=== PATIENT | female | born 1975 | race Caucasian/White ===

== ENCOUNTER 2024-10-10 23:33 | Inpatient (IN) | payer OTHER, SELFPAY ==
--- NOTE | ~2024-10-10 | CT_ITS ---
CLINICAL HISTORY: b l lower abd pain ?appy diverticulitis CT abdomen and pelvis with contrast Comparison: None Findings: No consolidation or effusion. The liver is enlarged. The liver appears normal in contour. The gallbladder and solid organs are otherwise within normal limits. No hydronephrosis or hydroureter. No bowel obstruction, pneumoperitoneum, or pneumatosis. There are postsurgical changes of the stomach suggesting prior gastric sleeve procedure. Pelvic contents unremarkable. No bladder wall thickening. There are edematous changes and minimal free fluid at the right lower abdominal quadrant with dilation of the appendix up to 9 mm in diameter. No periappendiceal abscess identified. No acute fracture visualized. IMPRESSION: 1. Acute appendicitis with dilation of the appendix up to 9 mm in diameter at the right lower abdominal quadrant. There is moderate periappendiceal edema and minimal free fluid. No periappendiceal abscess. 2. Mild hepatomegaly. This document has been electronically signed by: Matti Jain MD on 10/11/2024 02:35:39
[2024-10-10 23:34] VITALS: BP 139/83; PULSE 98; RESP 18; TEMP 36.3; O2SAT 100; BMI 27.2
[2024-10-10 23:59] LABS: MANUAL DIFF FLAG NO
[2024-10-11] VITALS (12 sets, daily range): BP systolic 108–136; BP diastolic 54–78; PULSE 66–97; RESP 16–18; TEMP 36.1–37.1; O2SAT 97–100; BMI 27.3
[2024-10-11 00:02] LABS: Appearance Urine Turbid; Basophils Percent Auto 0.2 % (0-2); Color Urine Yellow; Eosinophils Percent Auto 0.2 % (0-4); Glucose Urine UA Negative (Negative); Hematocrit 41.3 % (37.0-47.0); Hemoglobin 13.8 g/dl (12.0-16.0); Imm Gran Abs Auto 0.06 X10*3/uL (0.00-0.03); Imm Gran Pct Auto 0.5 % (0.0-0.4); Leukocyte Esterase Urine Negative (Negative); Lymphocytes Absolute Auto 1.5 X10*3/uL (1.2-4.9); Mean Corpuscular HGB Conc 33.4 g/dl (31.0-35.0); Mean Corpuscular Hemoglobin 28.4 pg (27.0-33.0); Mean Platelet Volume 9.2 fL (9.4-12.3); Monocytes Absolute Auto 0.7 X10*3/uL (0.1-1.2); Monocytes Percent Auto 5.4 % (2-11); Neutrophils Absolute Auto 10.9 x10*3/uL (2.0-8.3); Neutrophils Percent Auto 82.7 % (45-73); Nitrite Urine Negative (Negative); PH 8.5 (5.0-9.0); Platelet Count 213 X10*3/uL (160-400); Red Blood Count 4.86 X10*6/uL (4.20-5.50); Red Cell Distribution Width 12.3 % (11.0-16.0); Urine Blood Negative (Negative); Urine Ketones Negative (Negative); Urine Protein Negative (Neg-Trace); White Blood Count 13.1 X10*3/uL (4.8-10.8)
[2024-10-11 00:14] LABS: Alanine Aminotransferase 19 U/L (0-31); Alkaline Phosphatase 102 U/L (39-117); Anion Gap 13 (12-20); Aspartate Amino Transferase 18 U/L (5-31); Bilirubin Total 0.7 mg/dL (0.0-1.0); Blood Urea Nitrogen 8 mg/dL (9-16); Calcium 9.8 mg/dL (8.4-10.2); Carbon Dioxide 24 mmol/L (22-29); Chloride 106 mmol/L (96-108); Creatinine Clr Calc Pharmacy 80.2; Estimated Glomerular Filt Rate > 60; Glucose Random 100 mg/dL (60-115); Potassium 3.4 mmol/L (3.3-5.1); Sodium 140 mmol/L (135-145); Total Protein 7.7 g/dL (6.5-8.0)
--- NOTE | 2024-10-11 00:31 | ED.ABDPAIN ---
HPI - Abdominal Pain General Chief Complaint: Abdominal Pain Stated Complaint: abd pain Time Seen by Provider: 10/11/24 00:30 Source: patient Mode of arrival: ambulatory Limitations: no limitations History of Present Illness ED Provider: HPI narrative: Patient with no significant past medical history comes here for lower abdominal pain started 10/10/24 8am when she woke up history with nausea no vomiting and has a loose bowel denies any urinary complaints patient's feel diffuse pain in lower abdomen no fever no chills did not have much appetite today in pain got worse after eating food especially on the right side Related Data Allergies Allergy/AdvReac Type Severity Reaction Status Date / Time No Known Allergies Allergy Verified 10/10/24 23:39 Review of Systems Review of Systems Yes all other systems are reviewed and are negative PMFSH Past Medical History Attestation statement: The following information was validated with the patient. Social History Social History Patient Tobacco Use Status: Never used Tobacco Smoked in Last 30 Days: No Use of substances other than those prescribed or required for medical reasons: No Advance Directives: Yes Advance Directives Information Provided: Yes Advance Directives on File: No Nutrition Risks: No Nutritional Risk Patient : No Physical Exam ED Vital Signs: Vital Signs - 24 hr 10/10/24 23:34 10/11/24 03:10 10/11/24 03:11 Temperature 97.4 F 98.8 F Pulse Rate 98 67 Respiratory Rate 18 16 16 Blood Pressure 139/83 124/72 Pulse Oximetry 100 99 Oxygen Delivery Method Room Air Room Air BMI result Body Mass Index 27.2 Appearance: Alert. Oriented X3. No acute distress. Eyes: PERRLA, No Nystagmus ENT: Pharynx normal. Oral Mucosa moist Neck: Normal inspection. Neck supple. CVS: Normal heart rate and rhythm. Pulses normal. Respiratory: No respiratory distress. Equal air entry bilateral, no wheezing/rales/rhonchi Abdomen: Soft and tenderness right lower quadrant with guarding also has mild tenderness in the left lower quadrant without guarding. Normal skin color. Normal skin turgor. Extremities: No lower extremity edema. No calf tenderness Neuro: Oriented X 3. No motor deficit. No sensory deficit.No cerebellar signs , cranial nerves II-XII intact Medical Decision Making Medical Decision Making MDM Narrative: Patient's lower abdominal pain with no prior history of abdominal surgeries or complaints CT scan was done showed 9 mm dilated appendix with no free fluid case discussed Dr. Nam plan to admit will do surgery in a.m. Differential Diagnosis Differential Diagnoses: The differential diagnosis associated with the presentation includes Appendicitis/renal colic/diverticulitis Admission/Observation Consideration of admission/observation: Escalation of care including admission/observation considered Consult Healthcare Provider Management of the patient was discussed with: Esthetic Dermatologist Surgeon Dr. Nam Lab Data MDM Lab Attestation statement: I reviewed the patient's lab results. 10/10/24 23:55 10/10/24 23:55 Labs: Lab Results 10/10/24 10/11/24 Range/Units 23:55 03:05 WBC 13.1 H (4.8-10.8) X10*3/uL RBC 4.86 (4.20-5.50) X10*6/uL Hgb 13.8 (12.0-16.0) g/dl Hct 41.3 (37.0-47.0) % MCV 85.0 (80.0-98.0) fL MCH 28.4 (27.0-33.0) pg MCHC 33.4 (31.0-35.0) g/dl RDW 12.3 (11.0-16.0) % Plt Count 213 (160-400) X10*3/uL MPV 9.2 L (9.4-12.3) fL Immature Gran % (Auto) 0.5 H (0.0-0.4) % Neut % (Auto) 82.7 H (45-73) % Lymph % (Auto) 11.0 L (20-40) % [place] % (Auto) 5.4 (2-11) % Eos % (Auto) 0.2 (0-4) % Baso % (Auto) 0.2 (0-2) % Lymph # (Auto) 1.5 (1.2-4.9) X10*3/uL [place] # (Auto) 0.7 (0.1-1.2) X10*3/uL Eos # (Auto) 0.0 (0.0-0.4) X10*3/uL Baso # (Auto) 0.0 (0.0-0.2) X10*3/uL Abs Immat Gran (auto) 0.06 H (0.00-0.03) X10*3/uL Absolute Neuts (auto) 10.9 H (2.0-8.3) x10*3/uL Absolute Nucleated RBC 0.000 (0.0-0.012) X10*3/uL Nucleated RBC % (auto) 0.0 (0.0-0.2) /100WBC Sodium 140 (135-145) mmol/L Potassium 3.4 (3.3-5.1) mmol/L Chloride 106 (96-108) mmol/L Carbon Dioxide 24 (22-29) mmol/L Anion Gap 13 (12-20) BUN 8 L (9-16) mg/dL Creatinine 0.72 (0.5-1.4) mg/dL Estim Creat Clear Calc 80.2 Estimated GFR > 60 Random Glucose 100 (60-115) mg/dL Lactic Acid 0.7 (0.5-2.0) mmol/L Calcium 9.8 (8.4-10.2) mg/dL Total Bilirubin 0.7 (0.0-1.0) mg/dL AST 18 (5-31) U/L ALT 19 (0-31) U/L Alkaline Phosphatase 102 (39-117) U/L Total Protein 7.7 (6.5-8.0) g/dL Albumin 5.0 (3.5-5.0) g/dL Urine Color Yellow Urine Appearance Turbid Urine pH 8.5 (5.0-9.0) Ur Specific [place] 1.020 (1.005-1.025) Urine Protein Negative (Neg-Trace) mg/dL Urine Glucose (UA) Negative (Negative) mg/dL Urine Ketones Negative (Negative) mg/dL Urine Blood Negative (Negative) Urine Nitrite Negative (Negative) Ur Leukocyte Esterase Negative (Negative) Urine Test NEGATIVE (NEGATIVE) Independent Interpretation I performed an independent interpretation of an: CT Scan Radiology Impression Discussion of test interpretation with radiology: I have reviewed the radiologist's reading. Radiologist Impression: [address] [address] [address] Scan Report Signed with Vinay Patient: Becky Maki MR#: [id number] : 1975 Acct:[id number] Age/Sex: 49 / F ADM Date: 10/11/24 Loc: HO.ED Attending Dr: Ordering Physician: Jabari Boucher MD Date of Service: 10/11/24 Procedure(s): CT abdomen pelvis w IV con Accession Number(s): [id number] cc: Hugo Del Rio APRN; Jabari Boucher MD~ Report Number: [id number]: Total DLP = 478.00 mGy-cm ADDENDUMThis document has been electronically signed by: Matti Jain MD on 10/11/2024 02:35:39 ADDENDUM: This report was discussed with MARIAH Rodriguez on Oct 11, 2024 02:38:00 EDT. This document has been electronically signed by: Meredith Guthrie on 10/11/2024 02:38:21 Addendum Dictated By: Matti Jain MD Addendum Signed By: <Electronically signed by Matti Jain MD in OV> 10/11/24238 Addendum Cosigned By: DD/ TD/TT: 10/11/24 CLINICAL HISTORY: b l lower abd pain ?appy diverticulitis CT abdomen and pelvis with contrast Comparison: None Findings: No consolidation or effusion. The liver is enlarged. The liver appears normal in contour. The gallbladder and solid organs are otherwise within normal limits. No hydronephrosis or hydroureter. No bowel obstruction, pneumoperitoneum, or pneumatosis. There are postsurgical changes of the stomach suggesting prior gastric sleeve procedure. Pelvic contents unremarkable. No bladder wall thickening. There are edematous changes and minimal free fluid at the right lower abdominal quadrant with dilation of the appendix up to 9 mm in diameter. No periappendiceal abscess identified. No acute fracture visualized. IMPRESSION: 1. Acute appendicitis with dilation of the appendix up to 9 mm in diameter at the right lower abdominal quadrant. There is moderate periappendiceal edema and minimal free fluid. No periappendiceal abscess. 2. Mild hepatomegaly. This document has been electronically signed by: Matti Jain MD on 10/11/2024 02:35:39 Medications Administered Generic Name Dose Route Start Last Admin Trade Name Freq PRN Reason Stop Dose Admin Lactated Ringer's 1,000 mls @ 100 mls/hr 10/11/24 04:15 10/11/24 05:04 Lr IVCONT 100 mls/hr .Q10H MISSY Administration Discontinued Medications Generic Name Dose Route Start Last Admin Trade Name Javy PRN Reason Stop Dose Admin Sodium Chloride 1,000 mls @ 999 mls/hr 10/11/24 01:01 10/11/24 03:11 Ns IV 10/11/24 02:01 Infused .Q1H1M ONE Infusion Piperacillin Sod/Tazobactam 50 mls @ 100 mls/hr 10/11/24 02:44 10/11/24 03:40 Sod 3.375 gm/ Sodium Chloride IV 10/11/24 03:13 Infused ONCE ONE Infusion Iohexol 85 ml 10/11/24 01:28 10/11/24 01:28 Iohexol 350 Mg/Ml 100 Ml Infus..Btl IV 10/11/24 01:29 85 ml ONCE ONE Administration Ketorolac Tromethamine 30 mg 10/11/24 01:01 10/11/24 01:37 Ketorolac Tromethamine 30 Mg/Ml Vial IVPUSH 10/11/24 01:02 30 mg ONCE ONE Administration Morphine Sulfate 4 mg 10/11/24 02:50 10/11/24 03:10 Morphine Sulfate 4 Mg/Ml Cartridge IVPUSH 10/11/24 02:51 4 mg ONCE ONE Administration Protocol Ondansetron HCl 4 mg 10/11/24 02:50 10/11/24 03:10 Ondansetron Hcl 4 Mg/2 Ml Vial IVPUSH 10/11/24 02:51 4 mg ONCE ONE Administration Discharge Plan Discharge Clinical Impression: Acute appendicitis Patient Disposition: Admitted As Inpatient
--- NOTE | 2024-10-11 00:55 | PC.NURSE ---
pt a&ox4, respirations even and unlabored. pt reports onset of lower abdominal cramping which she states she had been in menopause x2 years. reports intermittent nausea and vomiting as well as episodes of diarrhea. pt denies sob and cp. 20g placed in right ac, fluids administering.
[2024-10-11 01:12] LABS: UPreg QC Valid YES; Urine Pregnancy NEGATIVE (NEGATIVE)
[2024-10-11] MEDS: iohexoL 350 MG/ML 100 ML INFUS..BTL 85 ML IV (01:28)
[2024-10-11] MEDS: Ketorolac Tromethamine 30 MG/ML VIAL IVPUSH (01:37)
[2024-10-11] MEDS: 0.9 % Sodium Chloride 1,000 ML 999 ML IV (01:38)
[2024-10-11] MEDS: ondansetron HCL 4 MG/2 ML VIAL IVPUSH (03:10)
[2024-10-11] MEDS: Piperacillin Sodium/Tazobactam 3.375 GM in 0.9 % Sodium Chloride 50 ML IV ×4 (03:10→20:15)
[2024-10-11] MEDS: Morphine Sulfate 4 MG/ML CARTRIDGE IVPUSH (03:10)
--- NOTE | 2024-10-11 03:12 | PC.NURSE ---
labs obtained at this time, vss. pt medicated per jun for 610 abdominal pain
[2024-10-11 03:29] LABS: Lactic Acid 0.7 mmol/L (0.5-2.0)
[2024-10-11] MEDS: Lactated Ringers 1,000 ML 100 ML IVCONT (05:04)
--- NOTE | 2024-10-11 08:30 | PHA.MEDREC ---
Pharmacy Consult ? Medication Reconciliation Pharmacy has completed the medication reconciliation. Patient confirmed to be on two medications at home. Patient stated she will bring in her phentermine if she feels she needs it, otherwise she is okay with going without. Both medications are for weight control.
--- NOTE | 2024-10-11 08:50 | PM.HPGS ---
History of Present Illness History of Present Illness Date of Service: 10/11/24 Chief complaint: acute appendicitis Narrative: Becky Maki is a 49 year old female here in the ER for a lower abdominal pain. She says that this started around 08:00 yesterday morning. This persisted throughout the day yesterday so she came to the emergency room late last night She says the pain is throughout her lower abdomen but is more in the right than on the left side. She denies any nausea or vomiting. She describes having a little bit of diarrhea the day before. She says she has never had any similar episodes in the past She denies any medical problems. She says she was on medications for hypertension in the past but she says that this was stopped after she had gastric bypass surgery 5 years ago. She also has a history of for C-sections. She smoked a pack a day for almost 20 years. She says she quit smoking several years ago. Review of Systems Constitutional: Constitutional: Denies chills and Denies fever(s) Cardiovascular: Cardiovascular: Denies chest pain, Denies dyspnea and Denies dyspnea on exertion Respiratory: Respiratory: Denies cough, Denies dyspnea and Denies dyspnea on exertion Gastrointestinal: Gastrointestinal: Denies hematochezia and Denies change in bowel habits Genitourinary: Genitourinary: Denies hematuria Musculoskeletal: Musculoskeletal: Denies back pain and Denies limited range of motion Neurologic: Denies focal weakness and Denies convulsions Psychiatric: Psychiatric: Denies depression and Denies mood swings PMFSH Social History Social History Household Members: Significant Other and Children Housing: House Do you presently have visiting nurse or other home services: No Patient Tobacco Use Status: Never used Tobacco Smoked in Last 30 Days: No Use of substances other than those prescribed or required for medical reasons: No Currently Displaying Signs/Symptoms of Drug Intoxication Withdrawal: No Have you been hit, kicked, punched, or otherwise hurt by someone within the past year? If so, by whom?: No Do you feel safe in your current relationship?: Yes Is there a partner from a previous relationship who is making you feel unsafe now?: No Are you made to feel afraid or neglected: No Advance Directives: Yes Advance Directives Information Provided: Yes Advance Directives on File: No Advance Directives Date on File: 10/11/24 Do you have a plan to hurt others: No Plan Recently lost weight without trying: No Eating poorly because of decreased appetite: No Nutrition Risks: No Nutritional Risk Patient : No : No Poor oral hygiene: No Meds Allergies Allergy/AdvReac Type Severity Reaction Status Date / Time No Known Allergies Allergy Verified 10/10/24 23:39 Active Medications: Current Medications Acetaminophen (Acetaminophen 325 Mg Tablet) 650 mg PO Q6H PRN PRN Reason: Pain, Mild 1-3,fever,headache Heparin Sodium (Porcine) (Heparin Sodium,Porcine 5,000 Unit/Ml Vial) 5,000 unit SUBCUT Q8H MISSY Lactated Ringer's (Lr) 1,000 mls @ 100 mls/hr IVCONT .Q10H [facility] Last Admin: 10/11/24 05:04 Dose: 100 mls/hr Piperacillin Sod/Tazobactam (Sod 3.375 gm/ Sodium Chloride) 50 mls @ 100 mls/hr IV Q6H [facility] Last Admin: 10/11/24 08:14 Dose: 100 mls/hr Morphine Sulfate (Morphine Sulfate 4 Mg/Ml Cartridge) 3 mg IVPUSH Q3H PRN; Protocol PRN Reason: Pain, Severe (Pain Scale 7-10) Sodium Chloride (0.9 % Sodium Chloride Flush 3 Ml Syringe) 3 ml IVFLUSH QSHIFT [facility] Last Admin: 10/11/24 08:14 Dose: Not Given Home Medications ?Medication ?Instructions ?Recorded ?Confirmed ?Last Taken ?Type phentermine 30 mg capsule 30 mg PO DAILY 10/11/24 10/11/24 Unknown History topiramate 100 mg tablet 100 mg PO DAILY 10/11/24 10/11/24 Unknown History Physical Exam Vital Signs: Vital Signs: Last Vital Signs Temp 98.4 F 10/11/24 06:09 Pulse 91 10/11/24 06:09 Resp 18 10/11/24 06:09 BP 126/74 10/11/24 06:09 Pulse Ox 100 10/11/24 06:09 O2 Del Method Room Air 10/11/24 06:09 BMI result Body Mass Index 27.2 Const: Other: Looks well General: comfortable and no acute distress Orientation/consciousness: patient oriented x3 Neck: Neck: Yes no lymphadenopathy Resp: Auscultation: clear to auscultation bilaterally Cardio: Rhythm: regular rhythm GI: Other: Tender on deep palpation in the lower abdomen, right more than the left, no peritoneal signs Palpation (GI): Soft to palpation, nontender and no guarding Neuro: General: patient oriented x3 Results Results Labs: Short CBC 10/10/24 Range/Units 23:55 WBC 13.1 H (4.8-10.8) X10*3/uL Hgb 13.8 (12.0-16.0) g/dl Hct 41.3 (37.0-47.0) % Plt Count 213 (160-400) X10*3/uL BMP 10/10/24 23:55 Sodium 140 Potassium 3.4 Chloride 106 Carbon Dioxide 24 BUN 8 L Creatinine 0.72 Calcium 9.8 Liver Function 10/10/24 Range/Units 23:55 Total Bilirubin 0.7 (0.0-1.0) mg/dL AST 18 (5-31) U/L ALT 19 (0-31) U/L Alkaline Phosphatase 102 (39-117) U/L Albumin 5.0 (3.5-5.0) g/dL Urine 10/10/24 Range/Units 23:55 Urine Color Yellow Urine Appearance Turbid Urine pH 8.5 (5.0-9.0) Ur Specific [place] 1.020 (1.005-1.025) Urine Protein Negative (Neg-Trace) mg/dL Urine Glucose (UA) Negative (Negative) mg/dL Urine Test NEGATIVE (NEGATIVE) Abdomen CT scan report/results: report reviewed and image reviewed CT scan - pelvis: report reviewed and image reviewed Additional studies: CT abdomen and pelvis with contrast Comparison: None Findings: No consolidation or effusion. The liver is enlarged. The liver appears normal in contour. The gallbladder and solid organs are otherwise within normal limits. No hydronephrosis or hydroureter. No bowel obstruction, pneumoperitoneum, or pneumatosis. There are postsurgical changes of the stomach suggesting prior gastric sleeve procedure. Pelvic contents unremarkable. No bladder wall thickening. There are edematous changes and minimal free fluid at the right lower abdominal quadrant with dilation of the appendix up to 9 mm in diameter. No periappendiceal abscess identified. No acute fracture visualized. IMPRESSION: 1. Acute appendicitis with dilation of the appendix up to 9 mm in diameter at the right lower abdominal quadrant. There is moderate periappendiceal edema and minimal free fluid. No periappendiceal abscess. 2. Mild hepatomegaly. Assessment and Plan (1) Acute appendicitis: Status: Acute [age] year old female, with lower abdominal pain, right more than the left for about 24 hours. I have reviewed her CAT scan and this does show some inflammatory changes in the right lower quadrant with an appendix that seems to be edematous, dilated and inflamed consistent with the acute appendicitis. I do not see any appendicolith. There were no abscesses I explained to her that we can do laparoscopic appendectomy for acute appendicitis. I explained the technique of laparoscopic appendectomy as well as open appendectomy by a laparotomy. I reviewed the risks including but not limited to bleeding, infections, injury to other organs including the urinary tract in the bowel, staple line leak, ingredients of anesthesia, as well as the benefits and alternatives. I reviewed with the what to expect postoperatively. She understands the option of antibiotic treatment but she prefers to go ahead with the appendectomy. She understands the above and says she wants to proceed. We will put her on the schedule for this morning in the operating room. Her mother was with her during the visit. Quality Stroke Does the patient have a stroke diagnosis?: No VTE Prior VTE?: No VTE Risk Level:: Medical - moderate - high VTE Device Contraindication: N/A - Device Ordered VTE Drug Contraindication: N/A - Med Ordered Procedures Date of Service Date of Service: 10/11/24
--- NOTE | 2024-10-11 09:31 | HO.ANESPROP2 ---
PMFSH Active Problems Active Problems: All Active Problems Acute appendicitis (Acute) Past Medical History Functional capacity: independent ambulation Patient : No Family History Family history of problems with anesthesia: No Surgical History History of Problems with Anesthesia: No Social History Social History Patient Tobacco Use Status: Never used Tobacco Smoked in Last 30 Days: No Use of substances other than those prescribed or required for medical reasons: No Advance Directives: Yes Advance Directives Information Provided: Yes Advance Directives on File: No Nutrition Risks: No Nutritional Risk Patient : No Meds Allergies Allergy/AdvReac Type Severity Reaction Status Date / Time No Known Allergies Allergy Verified 10/10/24 23:39 Active Medications: Current Medications Acetaminophen (Acetaminophen 325 Mg Tablet) 650 mg PO Q6H PRN PRN Reason: Pain, Mild 1-3,fever,headache Heparin Sodium (Porcine) (Heparin Sodium,Porcine 5,000 Unit/Ml Vial) 5,000 unit SUBCUT Q8H [facility] Lactated Ringer's (Lr) 1,000 mls @ 100 mls/hr IVCONT .Q10H [facility] Last Admin: 10/11/24 05:04 Dose: 100 mls/hr Piperacillin Sod/Tazobactam (Sod 3.375 gm/ Sodium Chloride) 50 mls @ 100 mls/hr IV Q6H [facility] Last Admin: 10/11/24 08:14 Dose: 100 mls/hr Morphine Sulfate (Morphine Sulfate 4 Mg/Ml Cartridge) 3 mg IVPUSH Q3H PRN; Protocol PRN Reason: Pain, Severe (Pain Scale 7-10) Sodium Chloride (0.9 % Sodium Chloride Flush 3 Ml Syringe) 3 ml IVFLUSH QSHIFT [facility] Last Admin: 10/11/24 08:14 Dose: Not Given Home Medications ?Medication ?Instructions ?Recorded ?Confirmed ?Last Taken ?Type phentermine 30 mg capsule 30 mg PO DAILY 10/11/24 10/11/24 Unknown History topiramate 100 mg tablet 100 mg PO DAILY 10/11/24 10/11/24 Unknown History Exam Height,Weight and Vital Signs: Height 5 ft Weight 63.2 kg Last Vital Signs Temp 98.4 F 10/11/24 06:09 Pulse 91 10/11/24 06:09 Resp 18 10/11/24 06:09 BP 126/74 10/11/24 06:09 Pulse Ox 100 10/11/24 06:09 O2 Del Method Room Air 10/11/24 06:09 Pertinent Lab Results Pertinent Lab Results: Laboratory Tests 10/10/24 10/11/24 23:55 03:05 WBC 13.1 H RBC 4.86 Hgb 13.8 Hct 41.3 MCV 85.0 MCH 28.4 MCHC 33.4 RDW 12.3 Plt Count 213 MPV 9.2 L Immature Gran % (Auto) 0.5 H Neut % (Auto) 82.7 H Lymph % (Auto) 11.0 L [place] % (Auto) 5.4 Eos % (Auto) 0.2 Baso % (Auto) 0.2 Lymph # (Auto) 1.5 [place] # (Auto) 0.7 Eos # (Auto) 0.0 Baso # (Auto) 0.0 Abs Immat Gran (auto) 0.06 H Absolute Neuts (auto) 10.9 H Absolute Nucleated RBC 0.000 Nucleated RBC % (auto) 0.0 Sodium 140 Potassium 3.4 Chloride 106 Carbon Dioxide 24 Anion Gap 13 BUN 8 L Creatinine 0.72 Estim Creat Clear Calc 80.2 Estimated GFR > 60 Random Glucose 100 Lactic Acid 0.7 Calcium 9.8 Total Bilirubin 0.7 AST 18 ALT 19 Alkaline Phosphatase 102 Total Protein 7.7 Albumin 5.0 Urine Color Yellow Urine Appearance Turbid Urine pH 8.5 Ur Specific [place] 1.020 Urine Protein Negative Urine Glucose (UA) Negative Urine Ketones Negative Urine Blood Negative Urine Nitrite Negative Ur Leukocyte Esterase Negative Urine Test NEGATIVE Airway Mallampati Class: II TM Dist: >3cm Neck ROM: Full Heart: RRR Lungs: CTA Assessment and Plan Assessment Anesthesia Assessment: Anesthesia Plan Discussed and Chart Reviewed Final Anesthetic Review Family History of Problems with Anesthesia: No History of Problems with Anesthesia: No NPO: Yes ASA Class: II and Emergency Final Preanesthetic Review: Meds/Allgs Chart Reviewed, Consent Obtained/Reviewed and Anes Risks/Benef Reviewed Patient Risk: Low Procedure Risk: Intermediate Anesthetic Plan Anesthetic Plan: GA Disposition: Standard PACU
--- NOTE | 2024-10-11 09:50 | PC.NURSE ---
verbal nurse to nurse report given to rasta STOVALL from the OR department
--- NOTE | 2024-10-11 11:14 | W.PM.OPN ---
Operative Note Operative Note Date of Service: 10/11/24 Narrative: Preop diagnosis: Acute appendicitis Postop diagnosis: Acute appendicitis, with the very indurated , suppurative appendix, extensive adhesions in the pelvis from multiple C-sections Procedure: Laparoscopic appendectomy, with extensive lysis of adhesions using the LigaSure The patient is a 49 year old female with lower abdominal pain right more than the left since yesterday morning. Her CAT scan was consistent with the acute appendicitis. She understood the technique of the planned procedure as well as the risks, benefits, and alternatives. She was brought to the operating room. She was placed supine under general anesthesia via endotracheal tube. A Alicia catheter was inserted. The abdomen was prepped and draped in the usual sterile fashion. A surgical time-out was done. The patient was receiving scheduled IV Zosyn I made a short infraumbilical incision with a blade 15. This carried down through the full-thickness of the skin and subcutaneous fat to the fascia. The fascia was incised. The peritoneum was entered. Through this incision a Dey port was introduced. Pneumoperitoneum was introduced to a pressure of 15 mm Hg. From here on, the rest of the procedure was done under vision with the 10 mm 30 degree scope. Laparoscopic examination of the pelvis showed extensive adhesions in the abdomen likely from her for previous C-sections. I therefore had to position the 2nd port laterally. I made a short incision on this area with a blade 15. I inserted a 12 mm port. I had to do extensive lysis of adhesions using the LigaSure to hear the pelvis of all these adherent fat. Fortunately, there were no loops that were markedly adherent. We did have to do a lot of lysis of adhesions to be able to clear the entire lower abdomen. Eventually, as able to have adequate visualization to insert a 5 mm port in the suprapubic margin. The patient was then placed in the head-down and [id number] position I was able to see the cecum and by tracing this, I was able to see the appendix which was oriented serially towards the pelvis. I was able to bluntly released this from the pelvis. This was markedly indurated and suppurative. This was adherent to another bowel loop as well but we are able to release this with gentle blunt dissection. I was able to apply a grasper at the midportion of the appendix to put this on stretch. This allowed me to visualize the base of the appendix. I created a mesenteric window at the base using the LigaSure. I positioned an Endo-HEIKE 30 mm stapler across the base. This was then fired and the appendix was transected. I used the LigaSure to serially divide the attached mesoappendix until the entire appendix was completely . The appendix was retrieved through an endobag through the umbilical incision. I reinserted all ports and re-insufflated I did laparoscopic examination of the entire abdomen. There was note of good hemostasis on the area of the dissection. The staple line was intact. All 4 quadrants 1 seen and examined. There was note of some adhesions the upper abdomen. Otherwise there was no other pathology seen. There were no suggestion of any bowel injury on full examination Once hemostasis was confirmed, I proceeded then pull the omentum to the right lower quadrant using has a were We desufflated the port sites. The ports were removed with laparoscopic visualization. The umbilical port was therefore removed last The fascia of the umbilical incision was closed with a [id number] Polysorb 0 stitch. All skin incisions were closed with Polysorb 4-0 subcuticular running sutures. All incisions were infiltrated with Marcaine 0.5% for postop analgesia. Dressings were applied. The procedure was completed The patient tolerated procedure well. There were no immediate complications. Initial and final counts of sponges and instruments were correct. Estimated blood loss was less than 20 cc. The patient was extubated without difficulty and transferred to the recovery room with stable vital signs. The Alicia catheter was removed.
[2024-10-11] MEDS: Acetaminophen 1,000 MG/100 ML PIGGYBACK 400 MG IV (11:33)
--- NOTE | 2024-10-11 15:17 | PM.EVENT ---
Event Note Date of Service: 10/11/24 Event Note: Seen postop Underwent uneventful laparoscopic appendectomy earlier Appears to have good pain control Looks comfortable Stable vital signs Abdomen is soft Pain management Regular diet Likely DC home in the morning Family at bedside Time Spent With Patient Time: Total time managing care of this patient today ____ minutes.
[2024-10-11] MEDS: Acetaminophen 325 MG TABLET 650 MG PO (15:36)
[2024-10-11] MEDS: oxyCODONE HCl Immed Release 5 MG TABLET 10 MG PO (17:04)
--- NOTE | 2024-10-11 19:29 | MHC.PIE ---
p; pt c/o acid reflux. note; pt reports no prior hx i; dr sims notified. telephone order maalox 15 mg po q6 prn e; will cont to monitor
[2024-10-11] MEDS: Magnesium Hydrox/Alum Hydrox 30 ML ORAL.SUSP 15 ML PO (20:09)
[2024-10-11] MEDS: 0.9 % Sodium Chloride Flush 3 ML SYRINGE IVFLUSH (20:15)
[2024-10-12 03:15] VITALS: BP 120/62; PULSE 75; RESP 16; TEMP 36; O2SAT 99
[2024-10-12] MEDS: Piperacillin Sodium/Tazobactam 3.375 GM in 0.9 % Sodium Chloride 50 ML IV (03:18)
--- NOTE | 2024-10-12 07:39 | PM.PNGS ---
Subjective Subjective Date of Service: 10/12/24 <Sona Swenson PA-C - Last Filed: 10/12/24 07:41> 10/12/24 <Anthony Nam MD - Last Filed: 10/12/24 08:19> Interval history: Feels well, very mild incisional pain. has been OOB and ambulating. Tolerating solid diet. Wants to go home. <Sona Swenson PA-C - Last Filed: 10/12/24 07:41> Physical Exam Vital Signs: Vital Signs: Last Vital Signs Temp 96.8 F 10/12/24 03:15 Pulse 75 10/12/24 03:15 Resp 16 10/12/24 03:15 BP 120/62 10/12/24 03:15 Pulse Ox 99 10/12/24 03:15 O2 Del Method Room Air 10/12/24 03:15 BMI result Body Mass Index 27.3 <Sona Swenson PA-C - Last Filed: 10/12/24 07:41> Const: General: comfortable, no acute distress and alert <Sona Swenson PA-C - Last Filed: 10/12/24 07:41> Orientation/consciousness: patient oriented x3 <Sona Swenson PA-C - Last Filed: 10/12/24 07:41> Resp: Effort & Inspection: normal respiratory effort <Sona Swenson PA-C - Last Filed: 10/12/24 07:41> GI: Inspection: No distended and Yes incision (dressings clean and intact) <Sona Swenson PA-C - Last Filed: 10/12/24 07:41> Palpation (GI): Soft to palpation, Tenderness to palpation present (GI) (mild incisional) and no guarding <Sona Swenson PA-C - Last Filed: 10/12/24 07:41> Skin: General skin exam: no rashes or lesions noted <ADARSH Sarmiento Last Filed: 10/12/24 07:41> Neuro: General: patient oriented x3 and moves all extremities <ADARSH Sarmiento Last Filed: 10/12/24 07:41> Objective Data Active Medications Acetaminophen (Acetaminophen 325 Mg Tablet) 650 mg PO Q6H PRN PRN Reason: Pain, Mild 1-3,fever,headache Last Admin: 10/11/24 15:36 Dose: 650 mg Documented By: SULLY Al Hydroxide/Mg Hydroxide (Magnesium Hydrox/Alum Hydrox 30 Ml Oral.Susp) 15 ml PO Q6H PRN PRN Reason: Heartburn Last Admin: 10/11/24 20:09 Dose: 15 ml Documented By: EVELIO Heparin Sodium (Porcine) (Heparin Sodium,Porcine 5,000 Unit/Ml Vial) 5,000 unit SUBCUT Q8H MISSY Piperacillin Sod/Tazobactam (Sod 3.375 gm/ Sodium Chloride) 50 mls @ 100 mls/hr IV Q6H [facility] Last Infusion: 10/12/24 03:53 Dose: Infused Documented By: EVELIO Ibuprofen (Ibuprofen 600 Mg Tablet) 600 mg PO Q6H PRN PRN Reason: pain, mode Morphine Sulfate (Morphine Sulfate 4 Mg/Ml Cartridge) 3 mg IVPUSH Q3H PRN; Protocol PRN Reason: Pain, Severe (Pain Scale 7-10) Naloxone HCl (Naloxone Hcl 0.4 Mg/Ml Vial) 0.04 mg IVPUSH Q5M PRN PRN Reason: Excessive sedation or RR < 8 Ondansetron HCl (Ondansetron Hcl 4 Mg/2 Ml Vial) 4 mg IVPUSH Q6H PRN PRN Reason: Nausea and Vomiting Oxycodone HCl (Oxycodone Hcl Immed Release 5 Mg Tablet) 10 mg PO Q4H PRN PRN Reason: Pain, Moderate(Pain Scale 4-6) Last Admin: 10/11/24 17:04 Dose: 10 mg Documented By: SULLY Sodium Chloride (0.9 % Sodium Chloride Flush 3 Ml Syringe) 3 ml IVFLUSH QSHIFT [facility] Last Admin: 10/11/24 20:15 Dose: 3 ml Documented By: EVELIO <Sona Swenson PA-C - Last Filed: 10/12/24 07:41> Labs CBC & Chem 7: 10/10/24 23:55 10/10/24 23:55 <Sona Swenson PA-C - Last Filed: 10/12/24 07:41> Microbiology Microbiology Results: Microbiology 10/11/24 03:05 Blood Culture - Preliminary Blood - Venous No growth after 24 hours. 10/11/24 03:05 Blood Culture - Preliminary Blood - Venous No growth after 24 hours. <Sona Swenson PA-C - Last Filed: 10/12/24 07:41> Procedures Date of Service Date of Service: 10/12/24 <Sona Swenson PA-C - Last Filed: 10/12/24 07:41> 10/12/24 <Anthony Nam MD - Last Filed: 10/12/24 08:19> Progress Note: A&P Assessment and plan (1) Acute appendicitis: Status: Acute <Sona Swenson PA-C - Last Filed: 10/12/24 07:41> Assessment and Plan: Feels well this morning Pain well controlled Tolerating diet Abdomen is soft and benign Okay to DC home Instructions reinforced with the patient Seen and examined independently <Anthony Nam MD - Last Filed: 10/12/24 08:19> (2) S/P laparoscopic appendectomy: Status: Acute <Sona Swenson PA-C - Last Filed: 10/12/24 07:41> Assessment and Plan: POD #1 s/p lap appy. Doing well post op, VSS. Abd exam benign with clean and intact dressings. stable for dc to home today. F/u in office in 2 weeks. Patient comfortable with plan. <Sona Swenson PA-C - Last Filed: 10/12/24 07:41> Time Spent With Patient Time: Total time managing care of this patient today ____ minutes. <Sona Swenson PA-C - Last Filed: 10/12/24 07:41> Quality Stroke Does the patient have a stroke diagnosis?: No <Sona Swenson PA-C - Last Filed: 10/12/24 07:41> VTE Prior VTE?: No <Sona Swenson PA-C - Last Filed: 10/12/24 07:41> VTE Risk Level:: Medical - moderate - high <ADARSH Sarmiento Last Filed: 10/12/24 07:41> VTE Device Contraindication: N/A - Device Ordered <Sona Swenson PA-C - Last Filed: 10/12/24 07:41> VTE Drug Contraindication: N/A - Med Ordered <Sona Swenson PA-C - Last Filed: 10/12/24 07:41>
--- NOTE | 2024-10-12 07:43 | HO.POSTANES ---
Post Anesthesia Evaluation Post Anesthesia Evaluation Date of Service: 10/12/24 Vital Signs: Vital Signs Temp Pulse Resp BP Pulse Ox O2 Del Method 10/12/24 03:15 96.8 F 75 16 120/62 99 Room Air 10/11/24 23:28 96.9 F 66 16 114/68 98 Room Air Anesthesia: General Mental Status: Awake Pain Control: Satisfactory Nausea/Vomiting: None Hydration: Adequate Anesthesia-Related Issues: No Anes. Related Issues
[2024-10-12 07:51] VITALS: BP 132/79; PULSE 79; RESP 16; TEMP 36.3; O2SAT 100
[2024-10-12] MEDS: Acetaminophen 325 MG TABLET 650 MG PO (08:18)
--- NOTE | 2024-10-12 09:08 | MHC.CM.PN ---
Patient dc'd home self care via private transport prior to CM assessment.
--- NOTE | 2024-10-12 13:36 | P.DS_ITS ---
DS: Providers Provider Date of Service: 10/12/24 Date of admission: 10/11/24 04:14 Date of discharge: 10/12/24 Primary care physician: Hugo Del Rio APRN Attending physician on admission: Anthony Nam Attending physician on discharge: Anthony Nam DS: Diagnosis Discharge Diagnosis (1) Acute appendicitis: Status: Acute (2) S/P laparoscopic appendectomy: Status: Acute DS: Summary Hospital Course Hospital Course: HPI AT ADMISSION: Becky Maki is a 49 year old female here in the ER for a lower abdominal pain. She says that this started around 08:00 yesterday morning. This persisted throughout the day yesterday so she came to the emergency room late last night. She says the pain is throughout her lower abdomen but is more in the right than on the left side. She denies any nausea or vomiting. She describes having a little bit of diarrhea the day before. She says she has never had any similar episodes in the past. She denies any medical problems. She says she was on medications for hypertension in the past but she says that this was stopped after she had gastric bypass surgery 5 years ago. She also has a history of for C-sections. She smoked a pack a day for almost 20 years. She says she quit smoking several years ago. CAT scan showed some inflammatory changes in the right lower quadrant with an appendix that seems to be edematous, dilated and inflamed consistent with the acute appendicitis without appendicoliths and no abscesses. HOSPITAL COURSE: The patient was admitted to the surgical service for further treatment of the acute appendicitis. Treatment options were discussed including observation and antibiotics or proceeding with laparoscopic appendectomy for acute appendicitis. She understands the option of antibiotic treatment but she preferred to go ahead with the appendectomy. She was added onto the OR schedule for that day. On 10/11/24, a laparoscopic appendectomy was performed by Dr. Nam without complication. The patient tolerated the procedure well. She had an uncomplicated recovery course. On POD #1, she felt well and was tolerating a solid diet without nausea or vomiting, had good pain control and was ambulating without difficulty. She was hemodynamically stable. Her abdomen was benign with appropriate post op tenderness and clean and intact dressings. She felt ready for discharge. She was discharged to home on 10/12/24 in stable condition. She is to follow up in the office in 2 weeks. Status at Discharge Functional status at discharge: independent ambulation Time Attestation Discharge Coordination Time (in mins): 25 Quality: Safe Use of Opioids Does Pt have an Active Cancer Diagnosis on the Problem List?: No Quality: Stroke Does the patient have a stroke diagnosis?: No Physical Exam Vital Signs: Vital Signs: Last Vital Signs Temp 97.4 F 10/12/24 07:51 Pulse 79 10/12/24 07:51 Resp 16 10/12/24 07:51 BP 132/79 10/12/24 07:51 Pulse Ox 100 10/12/24 07:51 O2 Del Method Room Air 10/12/24 07:51 BMI result Body Mass Index 27.3 Const: General: comfortable, no acute distress and alert Orientation/consciousness: patient oriented x3 Resp: Effort & Inspection: normal respiratory effort GI: Inspection: No distended and Yes incision (dressings clean and intact) Palpation (GI): Soft to palpation, Tenderness to palpation present (GI) (mild incisional) and no guarding Skin: General skin exam: no rashes or lesions noted Neuro: General: patient oriented x3 and moves all extremities DS: Data Data Completed and Pending Pending studies at discharge: Pending at discharge 10/11/24 10:48 Surgical [PTH] Routine Labs on day of discharge: Preliminary micro results at discharge 10/11/24 03:05 Blood Culture - Preliminary Blood - Venous No growth after 24 hours. 10/11/24 03:05 Blood Culture - Preliminary Blood - Venous No growth after 24 hours. Discharge Plan Discharge Anticipated Discharge Date/Time: 10/12/24 09:02 Patient Disposition: Home, Self-Care Discharge Diagnosis: acute appendicitis Referrals: Hugo Del Rio APRN [Primary Care Provider, Family Practice] - 1 Week Anthony Nam MD [Physician, General Surgery] - 2 Weeks Discharge Medications: New oxycodone 5 mg tablet 5 mg PO Q4H PRN (Reason: pain (scale score 7-10)) Qty: 20 0RF Rx Instructions: Partial Fill upon patient request. Continued phentermine 30 mg capsule 30 mg PO DAILY topiramate 100 mg tablet 100 mg PO DAILY Discharge Orders: Discharge Order (Routine); Ordered 10/12/24 Ordered By: Sona Swenson Diet: Advance to usual diet Activity on Discharge: No heavy lifting Stand Alone Forms: Patient Portal Discharge page Print Language: Tamazight Activity Restrictions/Additional Instructions: If the incision area is tender, you may apply an ice pack for short intervals (No more than 20 minutes on, followed by at least 20 minutes off). Do not apply heat. Do not use creams, lotions, or topical antibiotics unless instructed to do so by your surgeon. These can cause infection or allergic reaction. No lifting more than 20 lbs Okay to shower starting October 13, 2024 Okay to change dressings with gauze or Band-Aid after 1st shower No strenuous activities Call the office for follow-up in 2 weeks - with Dr. Nam Call Your Doctor If: -Your temperature exceeds 101.5? F -You experience excessive pain or swelling -You have an unexpected reaction to medication -You have excessive bleeding -You experience continued vomiting/nausea -Your incision begins to separate -Your incision shows signs of infection such as increased redness, swelling, excessive pain, drainage (light blood or clear fluid is normal) or heat Care Plan Goals: Back to baseline level of health Health Concerns: Recent appendectomy Plan of Treatment: Oral pain meds Office follow up Assessment: Doing well postop Discharge Date/Time: 10/12/24 08:30
== END 2024-10-12 08:30 | disposition home or self-care (01) | DRG 224 ==
LOC: HO.ED 10-11 01:06 → HO.EDOVER 10-11 04:52 → HO.S3 10-11 08:51
PROVIDERS: Admitting Provider Surgery; Emergency Provider Internal Medicine; PCP Nurse Practitioner Family; Visit Provider Surgery
PROC: 0DTJ4ZZ Resection of Appendix, Percutaneous Endoscopic Approach (ICD-10-PCS; CPT 44970; principal; 2024-10-11 10:00)
DX: K35.80 Unspecified acute appendicitis (principal); K66.0 Peritoneal adhesions (postprocedural) (postinfection); Z79.899 Other long term (current) drug therapy
CPT/HCPCS: 44970; 36415; 74177; 80053; 81003; 81025; 83605; 85025; 87040; 88304; 99221; 99285; J0131; J1100; J1885; J2003; J2250; J2270; J2405; J2543; J2704; J2795; J7120; Q9967

== ENCOUNTER → 2024-10-11 01:02 | Outpatient (BNV) | payer OTHER, SELFPAY | PROVIDERS: Emergency Provider Internal Medicine; PCP Nurse Practitioner Family; Visit Provider Radiology Diagnostic Radiology | DX: K35.80 Unspecified acute appendicitis (principal) | CPT/HCPCS: 74177 ==

== ENCOUNTER → 2024-10-11 04:14 | Outpatient (BNV) | payer OTHER, SELFPAY | PROVIDERS: Admitting Provider Surgery; Emergency Provider Internal Medicine; PCP Nurse Practitioner Family; Visit Provider Surgery | DX: K35.80 Unspecified acute appendicitis (principal); Z90.49 Acquired absence of other specified parts of digestive tract | CPT/HCPCS: 44970; 99024; 99222; 99499 ==

== ENCOUNTER 2024-10-20 10:29 | Outpatient (AMB) | payer OTHER, SELFPAY ==
--- NOTE | 2024-10-20 10:39 | MHC.OFFVIS ---
Vital Signs 10/20/24 10:40 Weight 138 lb BP 121/68 Blood Pressure Location Rt brachial Position Sitting Pulse 77 Intake Visit Reasons: s/p crescencio Nam Intake Note: Patient here s/p Laparoscopic appendectomy, with extensive lysis of adhesions using the LigaSure. Patient c/o: no concerns. Reports incision healing well. Never took rx pain med. Surgery: 10-11-2024 [employer] Client [employer] Analyst Required: No Accompanied by: Self / Same As Patient Allergies No Known Allergies Allergy (Verified 10/20/24 10:40) HPI HPI s/p crescencio Nam: Details: Patient reports she is doing well. States for the 1st few days after she was discharge she had some loose stools. But this has resolved. She attributes this to the antibiotic use. She does endorse some pain at the incision sites however states this is getting better each day. Denies fever, chills. Appetite is at baseline. Bowel function has returned to baseline. Reports some mild bruising at the incision sites that is also improving. Has questions about insurance, due to them not covering the procedure because it was ?not medically necessary?. [facility] Social History Household Members: Significant Other and Children Housing: House Do you presently have visiting nurse or other home services: No Patient Tobacco Use Status: Never used Tobacco Advance Directives Date on File: 10/11/24 Physical Exam Vital Signs: Last Vital Signs Pulse 77 10/20/24 10:40 BP 121/68 10/20/24 10:40 Const General: comfortable and no acute distress Orientation/consciousness: patient oriented x3 Resp Effort & Inspection: normal respiratory effort and able to speak in complete sentences GI Other: Incision sites appear to be healing well. Steri-Strips removed. Incision sites are clean dry and intact. Inspection: No distended Palpation (GI): Soft to palpation, Tenderness to palpation present (GI) (Mild at the epigastric incision site), no guarding and not rigid Neuro General: patient oriented x3 Assessment & Plan Assessment & Plan (1) S/P laparoscopic appendectomy: Code(s): Z90.49 - Acquired absence of other specified parts of digestive tract Category: Medical Plan 49-year-old female s/p laparoscopic appendectomy on 10/11/2024 presenting to the office for routine 2 week follow up. Patient is doing well, returning to baseline. Appetite and bowel function are at baseline. Patient no longer requiring pain medication. She reports occasional pain at the incision sites with ambulation. On exam there abdomen is soft and benign. Incision sites are healing well no concern for infection at this time. We will have patient coordinate with student liaison officer for assistance with the issues he is having with insurance. We will continue with activity limitations, no heavy lifting greater than 15 lb. Additionally, no submerging of the incision sites until after her next appointment. Patient will return in about 2 weeks for follow-up. She can return sooner with any concerns prior. Medications: Discontinued oxycodone Partial Fill upon patient request. Discontinued Reason: Patient Completed Course 5 mg PO Q4H PRN 20 tabs 0RF pain (scale score 7-10) Coding Level of Care Code Global (16343) Diagnoses S/P laparoscopic appendectomy Z90.49
[2024-10-20 10:40] VITALS: BP 121/68; PULSE 77
--- OUTSIDE RECORDS SUMMARY | 2024-10-20 11:40 | XMS_ITS | Encounter Summary ---
Author Organization [facility] Address [address] [place] [address] Care Team Providers Care Sole Conforming Machine Operator Name Role Phone Freddy Saldana MD Primary Care Provider Encounter Details Date Type Department Care Team (Latest Contact Info) Description 10/15/2024 Lab Requisition [facility] - Main Lab [address] [facility] [facility] [place] [address] Gail Curiel MD [address] [facility] [address] [place] [phone] Encounter for screening for infections with a predominantly sexual mode of transmission; Acute vaginitis Social History Tobacco Use Types Packs/Day Years Used Date Smoking Tobacco: Former Cigarettes 0.9 24.2 0 04/22/1991 - 06/28/2015 Smokeless Tobacco: Never Alcohol Use Standard Drinks/Week Comments No 0 (1 standard drink = 0.6 oz pur e alcohol) Comments Unknown Sex and Gender Information Value Date Recorded Sex Assigned at Female 03/10/2024 11:58 PM EST Legal Sex Female 12:53 AM EST Gender Identity Female 03/10/2024 11:58 PM EST Sexual Orientation Straight 03/10/2024 11 :58 PM EST documented as of this encounter Plan of Treatment Upcoming Encounters Date Type Department Care Team (Late st Contact Info) Description 04/06/2025 9:45 AM EST Office Visit Bariatric Surgery - [place] [address] [facility] [address] [place] [phone] Dede Abdul MD [address] [facility] [address] [place] [address] documented as of this encounter Procedures Procedure Name Priority Date/Time Associated Diagnosis Comments VAGINITIS PATHOGENS BY PCR Routine 10/15/2024 12:00 AM EDT Encounter for screening for infections with a predominantly sexual mode of transmission Acute vaginitis CHLAMYDIA TRACHOMATIS AND NEISSERIA GONORRHOEAE PCR Routine 10/15/2024 12:00 AM EDT Encounter for screening for infections with a predominantly sexual mode of transmission Acute vaginitis documented in this encounter Results * Vaginitis pathogens molecular study (10/15/2024 12:00 AM EDT) Trichomonas vaginalis Negative Negative 10/16/2024 10:58 AM EDT [facility] Gardnerella vaginalis Negative Negative 10/16/2024 10:58 AM EDT [facility] Barbara Species Negative Negative 10:58 AM EDT [facility] Swab Vaginal structure / Unknown 10/15/2024 10/15/2024 12:47 PM EDT us Gail Curiel MD LAB MICROBIOLOGY - GENER AL ORDERABLES Final Result [facility] [address] [place] [address], * Chlamydia trachomatis and Neisseria gonorrhoeae molecular study (10/15/2024 12:00 AM EDT) Neisseria gonorrhoeae PCR Negative Negative LAB MOLECULAR DIAGNOSTICS METHOD 10/15/2024 3:26 PM EDT [facility] Chlamydia trachomatis PCR Negative Negative LAB MOLECULAR DIAGNOSTICS METHOD 10/15/2024 3:26 PM EDT [facility] Swab Cervix uteri structure / Unknown 10/15/2024 10/15/2024 12:47 PM EDT us Gail Curiel MD LAB MICROBIOLOGY - GENER AL ORDERABLES Final Result [facility] [address] [place] [address], documented in this encounter Visit Diagnoses Diagnosis Encounter for screening for infections with a predominantly sexual mode of transmission Acute vaginitis Unspecified vaginitis and vulvovaginitis documented in this encounter Additional Health Concerns Assessment Noted Time PHQ-9 Depression Total Score: 0 03/11/20 24 1:00 PM EST documented as of this encounter Care Teams Sole Conforming Machine Operator Relationship Specialty Start Date End Date Freddy Saldana MD [address] [place] [address] PCP - General Internal Medicine 09/04/21 documented as of this encounter
== END 2024-10-20 11:03 | disposition home or self-care (01) ==
LOC: HO.HGS 10:30
PROVIDERS: PCP Nurse Practitioner Family
DX: Z90.49 Acquired absence of other specified parts of digestive tract (principal)
CPT/HCPCS: 99024